=== PATIENT | female | born 1995 | race African-American/Black ===

== ENCOUNTER 2024-04-12 21:56 | Emergency (ER) | payer BC, OTHER ==
[~2024-04-12] VITALS: Ht 170.2 cm; Wt 90.7 kg
[2024-04-12 23:10] VITALS: BP 136/97; TEMP 98.3; O2SAT 97
[2024-04-12] MEDS ORDERED: dexaMETHasone SOD PHOSPHATE 1 ML ONE (23:43)
[2024-04-12] MEDS: dexaMETHasone SOD PHOSPHATE 10 MG/ML VIAL MC ONE (23:46)
[2024-04-13 00:21] LABS: BASOPHILS % (AUTO) 0.6 % (0.0-2.0); EOSINOPHILS # (AUTO) 0.1 K/uL (0.0-0.7); EOSINOPHILS % (AUTO) 0.9 % (0.0-6.0); HEMATOCRIT 36 % (33-45); HEMOGLOBIN 12.2 g/dL (11.5-14.8); LYMPHOCYTES # (AUTO) 2.8 K/uL (0.8-4.8); LYMPHOCYTES % (AUTO) 44.5 % (20.0-44.0); MEAN CORPUSCULAR HEMOGLOBIN 29 PG (26.0-33.0); MEAN CORPUSCULAR HGB CONC 34 g/dl (31.0-36.0); MEAN CORPUSCULAR VOLUME 84 fL (82-100); MONOCYTES # (AUTO) 0.5 K/uL (0.1-1.30); MONOCYTES % (AUTO) 8.3 % (2.0-12.0); NEUTROPHILS # (AUTO) 2.9 K/uL (1.8-8.9); NEUTROPHILS % (AUTO) 45.7 % (43.0-81.0); PLATELET COUNT (AUTO) 279 K/uL (150-450); RED BLOOD CELL COUNT(AUTO) 4.23 MIL/uL (4.0-5.2); RED CELL DISTRIBUTION WIDTH 12.6 % (11.5-15.0); WHITE BLOOD COUNT (AUTO) 6.3 K/uL (4.3-11.0)
[2024-04-13 00:41] LABS: CALCIUM, SERUM 9.2 mg/dL (8.5-10.1); CREATININE 0.8 mg/dL (0.6-1.3); POTASSIUM 3.7 mmol/L (3.5-5.1)
[2024-04-13 00:47] LABS: ALBUMIN 3.5 g/dL (3.4-5.0); BILIRUBIN,TOTAL 0.7 mg/dL (0.2-1.0); TOTAL PROTEIN, SERUM 7.3 g/dL (6.4-8.2)
[2024-04-13] MEDS ORDERED: ACETAMINOPHEN ES 500 MG TABLET ONE (01:06)
[2024-04-13] MEDS: ACETAMINOPHEN ES 500 MG TABLET PO ONE (01:07)
[2024-04-13] MEDS: IBUPROFEN 600 MG TABLET PO ONE (01:07)
[2024-04-13] MEDS ORDERED: IBUPROFEN 600 MG TABLET ONE (01:07)
[2024-04-13] MEDS ORDERED: IBUP-1955 PO (01:16)
[2024-04-13] MEDS ORDERED: ACET-2605 PO (01:16)
[2024-04-13] MEDS ORDERED: ONDA4TAB5 PO (01:16)
== END 2024-04-13 02:10 | disposition home or self-care (01) ==
LOC: ER 21:57
DX: J02.9 Acute pharyngitis, unspecified (principal); R11.2 Nausea with vomiting, unspecified; J45.909 Unspecified asthma, uncomplicated; Z60.2 Problems related to living alone; Z20.822 Contact with and (suspected) exposure to COVID-19
CPT/HCPCS: 99284; 87426; 87804 ×2; 85025; 87070; 36415; 87880; 80053; J1100; 86403-TC

== ENCOUNTER 2024-05-28 07:56 | Emergency (ER) | payer BC, OTHER ==
[~2024-05-28] VITALS: Ht 170.2 cm; Wt 95.3 kg
[~2024-05-28 07:56] MED LIST: ACET-2605 PO; IBUP-1955 PO; ONDA4TAB5 PO
[2024-05-28] MEDS ORDERED: ONDANSETRON HCL/PF 4 MG/2 ML VIAL ONE (08:15)
[2024-05-28] MEDS ORDERED: FAMOTIDINE/PF INJ 20 MG/2 ML VIAL IV ONE (08:15)
[2024-05-28] MEDS ORDERED: LIDOCAINE VISCOUS 2% UD 15 ML UDC ONE (08:16)
[2024-05-28] MEDS ORDERED: MAG HYDROX/AL HYDROX/SIMETH 30 ML UDC ONE (08:17)
[2024-05-28] MEDS: IV NS 0.9% 1,000 ML BAG IV ONE (08:20)
[2024-05-28] MEDS: LIDOCAINE VISCOUS 2% UD 15 ML UDC MM ONE (08:27)
[2024-05-28] MEDS: MAG HYDROX/AL HYDROX/SIMETH 30 ML UDC PO ONE (08:27)
[2024-05-28] MEDS: FAMOTIDINE/PF INJ 20 MG/2 ML VIAL IV ONE (08:28)
[2024-05-28 08:29] LABS: BASOPHILS % (AUTO) 0.7 % (0.0-2.0); EOSINOPHILS # (AUTO) 0.1 K/uL (0.0-0.7); EOSINOPHILS % (AUTO) 1.4 % (0.0-6.0); HEMATOCRIT 38 % (33-45); HEMOGLOBIN 12.6 g/dL (11.5-14.8); LYMPHOCYTES # (AUTO) 2.1 K/uL (0.8-4.8); LYMPHOCYTES % (AUTO) 37.8 % (20.0-44.0); MEAN CORPUSCULAR HEMOGLOBIN 29 PG (26.0-33.0); MEAN CORPUSCULAR HGB CONC 34 g/dl (31.0-36.0); MEAN CORPUSCULAR VOLUME 86 fL (82-100); MONOCYTES # (AUTO) 0.3 K/uL (0.1-1.30); MONOCYTES % (AUTO) 5.5 % (2.0-12.0); NEUTROPHILS # (AUTO) 3.1 K/uL (1.8-8.9); NEUTROPHILS % (AUTO) 54.6 % (43.0-81.0); PLATELET COUNT (AUTO) 287 K/uL (150-450); RED BLOOD CELL COUNT(AUTO) 4.41 MIL/uL (4.0-5.2); RED CELL DISTRIBUTION WIDTH 13.7 % (11.5-15.0); WHITE BLOOD COUNT (AUTO) 5.6 K/uL (4.3-11.0)
[2024-05-28] MEDS: ONDANSETRON HCL/PF 4 MG/2 ML VIAL IVP ONE (08:29)
[2024-05-28 08:42] LABS: APPEARANCE,URINE CLEAR (CLEAR); BILIRUBIN,URINE NEGATIVE (NEGATIVE); BLOOD, URINE 1+ Ery/uL (NEGATIVE); COLOR,URINE YELLOW (YELLOW); KETONES,URINE TRACE mg/dL (NEGATIVE); LEUKOCYTE ESTERASE ,URINE NEGATIVE (NEGATIVE); NITRITE, URINE NEGATIVE (NEGATIVE); PROTEIN,URINE NEGATIVE (NEGATIVE); UGLUCOSE NEGATIVE (NEGATIVE)
[2024-05-28 08:44] LABS: CALCIUM, SERUM 9.6 mg/dL (8.5-10.1); CREATININE 0.9 mg/dL (0.6-1.3); POTASSIUM 4.2 mmol/L (3.5-5.1)
[2024-05-28 08:51] LABS: ALBUMIN 3.5 g/dL (3.4-5.0); BILIRUBIN,DIRECT 0.2 mg/dL (0.0-0.2); TOTAL PROTEIN, SERUM 7.3 g/dL (6.4-8.2)
[2024-05-28 09:12] LABS: RBC,URINE 0-2 /HPF (0-2)
[2024-05-28 09:13] LABS: ADD URINE CULTURE YES; BACTERIA,URINE Many /HPF (None Seen)
[2024-05-28 09:16] LABS: SQUAMOUS EPITHELIAL CELL,UR Moderate /HPF (None Seen)
[2024-05-28] MEDS ORDERED: ONDA4TAB5 PO (09:39)
[2024-05-28] MEDS ORDERED: CEFD300C3 PO (09:39)
[2024-05-28] MEDS ORDERED: OMEP20TA20 PO (09:39)
[2024-05-28 09:51] VITALS: BP 128/72; TEMP 98; O2SAT 98
== END 2024-05-28 09:53 | disposition home or self-care (01) ==
LOC: ER 07:59
DX: N39.0 Urinary tract infection, site not specified (principal); R10.13 Epigastric pain; R11.0 Nausea; J45.909 Unspecified asthma, uncomplicated; Z90.49 Acquired absence of other specified parts of digestive tract; Z79.899 Other long term (current) drug therapy; Z60.2 Problems related to living alone
CPT/HCPCS: 99285; 96374; 76705; 96361; 96375; 85025; 80048; 87086; 83690; 80076; 81001; 36415; J3490; J2405; J7030